=== PATIENT | male | born 1990 ===

== ENCOUNTER 2023-12-18 16:28 | Outpatient (REF) | payer BC, SELFPAY ==
[2023-12-21 13:32] LABS: Lyme Ab w Rflx to Lyme Confirm Negative (Negative)
[2023-12-21 14:30] LABS: Anaplasma phagocytophilum Negative (Negative); B. miyamotoi PCR Negative (Negative); Babesia divergens/MO-1 Negative (Negative); Babesia duncani Negative (Negative); Babesia microti Negative (Negative); Ehrlichia chaffeensis Negative (Negative); Ehrlichia ewingii/canis Negative (Negative); Ehrlichia muris eauclairensis Negative (Negative)
== END 2023-12-18 16:29 | disposition home or self-care (01) ==
LOC: LBN 16:28
PROVIDERS: Visit Provider Physician Assistant Medical
DX: B34.9 Viral infection, unspecified (principal); Z11.8 Encounter for screening for other infectious and parasitic diseases
CPT/HCPCS: 87637; 87798; 86618

== ENCOUNTER 2023-12-20 18:41 | Outpatient (REF) | payer BC, SELFPAY ==
[2023-12-20 19:36] LABS: Source Nasopharynx
[2023-12-20 20:08] LABS: COVID-19 PCR Negative (Negative)
== END 2023-12-20 18:42 | disposition home or self-care (01) ==
LOC: LBN 18:41
PROVIDERS: Visit Provider Nurse Practitioner Family
DX: R05.8 Other specified cough (principal); Z20.822 Contact with and (suspected) exposure to COVID-19
CPT/HCPCS: 87635; 87637

== ENCOUNTER 2024-09-13 08:06 | Outpatient (REF) | payer OTHER, SELFPAY ==
[2024-09-13 14:15] LABS: HCT 45.3 % (40.0-50.0); HGB 15.9 g/dL (13.5-17.5); MCHC 35.1 % (32.0-36.0); MCV 88 fL (80-95); MPV 10.3 fL (8.0-11.0); Platelet Count 200 10^3/uL (130-400); RBC 5.13 10^6/uL (4.36-5.78); RDW 12.1 % (11.8-14.1); RDW-SD 39.7 fL; WBC 10.91 10^3/uL (4.4-10.8)
[2024-09-13 14:40] LABS: ALT 128 U/L (16-63); AST 54 U/L (15-37); Albumin 4.5 g/dL (3.4-5.0); Alkaline Phosphatase 88 U/L (46-116); Anion Gap 6.9 mmol/L (3-11); BUN 11 mg/dL (7-18); Bilirubin, Total 0.6 mg/dL (0.2-1.0); CO2 31.1 mmol/L (21.0-32.0); CREATININE 0.9 mg/dL (0.70-1.30); Calcium 9.6 mg/dL (8.5-10.1); Calculated LDL 121 mg/dL (<100); Chloride 107 mmol/L (98-107); Cholesterol 187 mg/dL (<200); Estimated GFR 114.93 (mL/min/1.73m2); Glucose 100 mg/dL (74-106); HDL Cholesterol 49 mg/dL (>or=40); Sodium 145 mmol/L (136-145); Total Protein 8.6 g/dL (6.4-8.2); Triglyceride 88 mg/dL (<150)
== END 2024-09-13 08:07 | disposition home or self-care (01) ==
LOC: NCHCN 08:06
PROVIDERS: Visit Provider Physician Assistant
DX: Z13.220 Encounter for screening for lipoid disorders (principal); Z13.0 Encounter for screening for diseases of the blood and blood-forming organs and certain disorders involving the immune mechanism
CPT/HCPCS: 80053; 80061; 85027